=== PATIENT | male | born 1960 | race African-American/Black ===

== ENCOUNTER 2020-09-26 18:18 | Emergency (ER) | payer MEDICARE ==
[~2020-09-26] VITALS: Ht 180.3 cm; Wt 107.2 kg
[2020-09-26] MEDS ORDERED: METFORMIN HCL500 MG PO (18:37)
[2020-09-26] MEDS ORDERED: LASIX20 MG PO (18:37)
[2020-09-26] MEDS ORDERED: HYDROCHLOROTHIA50 MG (18:37)
[2020-09-26] MEDS ORDERED: POTASSIUM CHLO10 ME1 PO (18:37)
[2020-09-26] MEDS ORDERED: ATORVASTATIN CA20 MG PO (18:37)
[2020-09-26] MEDS ORDERED: TOPIRAMATE25 MG PO (18:37)
[2020-09-26] MEDS ORDERED: METOPROLOL TAR100 MG PO (18:37)
[2020-09-26] MEDS ORDERED: LOSARTAN POTAS100 MG PO (18:37)
[2020-09-26] MEDS ORDERED: LITHOBID300 MG PO (18:37)
[2020-09-26] MEDS ORDERED: ASPIRIN EC81 MG PO (18:38)
[2020-09-26] MEDS ORDERED: RISPERIDONE3 MG (18:38)
[2020-09-26] MEDS ORDERED: SODIUM CHLORIDE 0.9% 500ML 500 ML IV STA (18:38)
[2020-09-26] MEDS ORDERED: ONDANSETRON HCL INJ 2MG/ML 2ML 2 MG/ML VIAL IV STA (18:40)
[2020-09-26] MEDS ORDERED: ONDANSETRON HCL INJ 2MG/ML 2ML 2 MG/ML VIAL ONE (18:54)
[2020-09-26] MEDS ORDERED: SODIUM CHLORIDE 0.9% 500ML 500 ML ONE (18:55)
[2020-09-26] MEDS ORDERED: POTASSIUM CHLORIDE 20 MEQ TAB CR PO STA (19:30)
== END 2020-09-26 20:00 | disposition home or self-care (01) ==
LOC: FSED 18:30
DX: R10.9 Unspecified abdominal pain (principal); E87.6 Hypokalemia; I10 Essential (primary) hypertension; E11.9 Type 2 diabetes mellitus without complications; E78.5 Hyperlipidemia, unspecified; F31.9 Bipolar disorder, unspecified; F20.9 Schizophrenia, unspecified
CPT/HCPCS: 74176; 80053; 85025; 96374; 99284; J2405; J7040